=== PATIENT | female | born 1975 | race African-American/Black ===

== ENCOUNTER 2022-02-13 11:03 | Day surgery (SDC) | payer BC ==
[2022-02-13] VITALS (10 sets, daily range): BP systolic 117–144; BP diastolic 76–90; PULSE 68–87; TEMP 97.2–98.4
[~2022-02-13] VITALS: Ht 170.2 cm; Wt 73.6 kg
[2022-02-13] MEDS ORDERED: MOTRIN 800800 MG/TAB PO (18:22)
[2022-02-13] MEDS ORDERED: PERCOCET 325 MG1 TA2 PO (18:22)
--- NOTE | 2022-02-13 21:55 | NUR ---
2154 Dangled on edge of bed. Bright red blood oozing from right abdominal port site. Reinforced with 4x4 and bandaid x2. Bleeding slows. Pt ambulatory in halls.
[2022-02-14 03:30] VITALS: BP 129/75; PULSE 81; TEMP 98.7
--- NOTE | 2022-02-14 07:30 | NUR ---
0730-In to see patient. Dr. Pñea already rounding just left room. Orders to discontinue fernandez and patient may discharge following void.
[2022-02-14 08:33] VITALS: BP 130/77; PULSE 80; TEMP 98
--- NOTE | 2022-02-14 09:30 | NUR ---
0930-Reviewed discharge instructions and updated on new prescriptions and appointments to follow up at. Denies questions. [id number]-Ambulatory off unit with spouse.
--- NOTE | 2022-02-14 09:58 | NUR ---
Initial visit; Patient is a delightful girl who states with a smile that all is going well. Family is present offering support and love. Lead Radiologic Technologist offered God's blessings to Loly.
== END 2022-02-14 09:45 | disposition home or self-care (01) ==
LOC: SDCO 11:03 → OB 16:28 → SDCO 02-14 09:45
PROVIDERS: Obstetrics & Gynecology
DX: D25.2 Subserosal leiomyoma of uterus (principal); D25.1 Intramural leiomyoma of uterus; N83.02 Follicular cyst of left ovary; N94.6 Dysmenorrhea, unspecified; Z87.891 Personal history of nicotine dependence
CPT/HCPCS: OP; J0690; J1100; J1170; J1885; J2405; J2704; J3010; J7120